=== PATIENT | female | born 1990 | race Caucasian/White ===

== ENCOUNTER 2018-12-13 10:13 | Inpatient (IN) | payer OTHER ==
[2018-12-07 11:54] VITALS: BMI 46.5
--- NOTE | 2018-12-13 12:24 | HP ---
Admitting History and Physical - Admission Chief Complaint: Morbid obesity History of Present Illness: As above History Source: Patient Limitations to Obtaining History: No Limitations - Past Medical History ...LMP: 11/23/18 Psych: Yes: Depression - Advance Directives Advance Directives: Yes: Health Care Proxy - Smoking History Smoking history: Never smoked Have you smoked in the past 12 months: No - Alcohol/Substance Use Hx Alcohol Use: Yes (SOCIALLY) Home Medications - Allergies Allergies/Adverse Reactions: Allergies Allergy/AdvReac Type Severity Reaction Status Date / Time No Known Drug Allergies Allergy Verified 12/07/18 11:45 - Home Medications Home Medications: Ambulatory Orders Sertraline HCl [Zoloft] 125 mg PO DAILY 12/07/18 Famotidine [Pepcid] 20 mg PO BID #60 tablet 12/13/18 Oxycodone HCl/Acetaminophen [Percocet 5-325 mg Tablet] 1 - 2 tab PO Q6H #28 tab MDD 4 12/13/18 Family Disease History - Family Disease History Family History: Denies Review of Systems - Review of Systems Constitutional: denies: Chills, Fever HENT: reports: No Symptoms Neck: reports: No Symptoms Cardiovascular: reports: No Symptoms Respiratory: reports: No Symptoms Gastrointestinal: reports: No Symptoms Neurological: reports: No Symptoms Pain Intensity: 0 Physical Examination Vital Signs: Vital Signs Temperature 98.1 F 12/13/18 10:57 Pulse Rate 72 12/13/18 10:57 Respiratory Rate 16 12/13/18 10:57 Blood Pressure 125/79 12/13/18 10:57 O2 Sat by Pulse Oximetry (%) Constitutional: Yes: Calm, Obese HENT: Yes: WNL Neck: Yes: WNL Cardiovascular: Yes: WNL Respiratory: Yes: WNL Gastrointestinal: Yes: Soft, Abdomen, Obese. No: Tenderness Neurological: Yes: Alert, Oriented Problem List - Problems (1) Morbid obesity due to excess calories Code(s): E66.01 - MORBID (SEVERE) OBESITY DUE TO EXCESS CALORIES (2) BMI 45.0-49.9, adult Code(s): Z68.42 - BODY MASS INDEX (BMI) 45.0-49.9, ADULT Assessment/Plan Laparoscopic possible open vertical sleeve gastrectomy possible liver biopsy possible upper endoscopy
[2018-12-13] MEDS ORDERED: PROPOFOL 20 ML ONE (12:27)
[2018-12-13] MEDS ORDERED: ONDANSETRON 4 MG/2 ML VIAL ONE ×2 (12:27→14:40)
[2018-12-13] MEDS ORDERED: ROCURONIUM BROMIDE 50 MG/5 ML VIAL ONE ×2 (12:27→14:09)
[2018-12-13] MEDS ORDERED: DEXAMETHASONE SOD PHOSPHATE 4 MG/1 ML VIAL ONE (12:27)
[2018-12-13] MEDS ORDERED: fentaNYL CITRATE 250 MCG/5 ML VIAL ONE (12:27)
[2018-12-13] MEDS ORDERED: BUPIVACAINE HCL/PF 2.5 MG/ML - 30 ML VIAL IJ ONE (12:28)
[2018-12-13] MEDS ORDERED: MIDAZOLAM HCL 2 MG/2 ML SINGLE DOSE VIAL ONE (12:36)
[2018-12-13] MEDS ORDERED: ROPIVACAINE HCL 0.5% 30ML VIAL ONE (12:36)
[2018-12-13] MEDS ORDERED: ceFAZolin SODIUM 1 GM VIAL IVPB ONE (13:15)
[2018-12-13] MEDS ORDERED: ONDANSETRON 4 MG/2 ML VIAL IVPUSH PRN (13:24)
[2018-12-13] MEDS ORDERED: LACTATED RINGERS SOLUTION 1,000 ML IV SCH (13:30)
[2018-12-13] MEDS ORDERED: BUPIVACAINE HCL/PF 0.25% (2.5MG/ML) 10 ML VIAL IJ ONE ×2 (14:19)
--- NOTE | 2018-12-13 14:46 | OP ---
Operative Note - Note: Operative Date: 12/13/18 Pre-Operative Diagnosis: Morbid obesity. BMI 46.6 Operation: Laparoscopic vertical sleeve gastrectomy. Laparoscopic wedge liver biopsy Post-Operative Diagnosis: Same as Pre-op (as well as hepatomegaly) Surgeon: Romeo Perry Thermoforming Machine Operator: Gilmar Sin Anesthesia: General Specimens Removed: Greater curvature of the stomach. Liver biopsy Estimated Blood Loss (mls): 30 Drains & Tubes with Location: 36 fr Bougie Operative Report Dictated: Yes
[2018-12-13] MEDS ORDERED: METOCLOPRAMIDE HCL INJECTION 10 MG/2 ML VIAL ONE (14:48)
[2018-12-13] MEDS ORDERED: PROMETHAZINE HCL 25 MG/1 ML VIAL ONE (14:48)
[2018-12-13] MEDS ORDERED: METOCLOPRAMIDE HCL INJECTION 10 MG/2 ML VIAL IVPUSH ONE (14:50)
[2018-12-13] MEDS ORDERED: FAMOTIDINE 20 MG PREMIXED IVPB IVPB ONE (14:55)
[2018-12-13] MEDS ORDERED: PROMETHAZINE HCL 25 MG/1 ML VIAL IVPUSH ONE (14:55)
[2018-12-13] MEDS ORDERED: SODIUM CHLORIDE 1,000 ML IV SCH (15:00)
[2018-12-13] MEDS ORDERED: METOCLOPRAMIDE HCL INJECTION 10 MG/2 ML VIAL IVPUSH SCH (15:00)
[2018-12-13] MEDS ORDERED: ACETAMINOPHEN 1000 MG/100 ML VIAL (NON FORMULARY) IVPB ONE (15:00)
[2018-12-13 15:26] LABS: HEMATOCRIT 33.9 % (32.4-45.2); HEMOGLOBIN 10.9 GM/dl (10.7-15.3); MCH 24.7 pg (25.7-33.7); MCHC 32.1 g/dl (32.0-36.0); MEAN PLT VOLUME 9.9 fl (7.5-11.1); PLATELET COUNT 191 K/MM3 (134-434); RDW 13.6 % (11.6-15.6); WHITE BLOOD COUNT 8.7 K/mm3 (4.0-10.8)
[2018-12-13 15:45] LABS: ALBUMIN 3.2 g/dl (3.4-5.0); ALK PHOS 65 U/L (45-117); ANION GAP 7 MMOL/L (8-16); BILIRUBIN,TOTAL 0.6 mg/dl (0.2-1); BLOOD UREA NITROGEN 10 mg/dl (7-18); CALCIUM 8.2 mg/dl (8.5-10); CHLORIDE 104 mmol/L (98-107); CO2 22 mmol/L (21-32); CREATININE 0.7 mg/dl (0.55-1.3); GLUCOSE,RANDOM 99 mg/dl (74-106); POTASSIUM 3.8 mmol/L (3.5-5.1); SGOT/AST 28 U/L (15-37); SGPT/ALT 28 U/L (13-61); SODIUM 133 mmol/L (136-145); TOT PROT 6.3 g/dl (6.4-8.2)
[2018-12-13] MEDS: ACETAMINOPHEN 1000 MG/100 ML VIAL (NON FORMULARY) IVPB SCH ×2 (16:29→20:27)
[2018-12-13] MEDS: ONDANSETRON 4 MG/2 ML VIAL IVPUSH SCH ×2 (16:48→20:27)
[2018-12-13] MEDS: ENOXAPARIN NA (PORCINE) 40 MG/0.4 ML DISP.SYRIN SQ SCH (21:32)
[2018-12-13] MEDS: FAMOTIDINE 20 MG/50 ML IVPB 20 MG/50 ML MG IVPB SCH (21:32)
--- NOTE | 2018-12-13 23:19 | SPEC ---
DATE OF OPERATION: 12/13/2018 SURGEON: Harjinder Perry M.D. RADIO INTERFERENCE SUPERVISOR: Gilmar Sin M.D. PREOPERATIVE DIAGNOSIS: 1. Morbid obesity. 2. Depression. 3. Body mass index of 46.6. POSTOPERATIVE DIAGNOSIS: 1. Morbid obesity. 2. Depression. 3. Body mass index of 46.6. 4. Hepatomegaly. PROCEDURES: 1. Laparoscopic vertical sleeve gastrectomy. 2. Laparoscopic wedge liver biopsy. SPECIMENS: 1. Greater curvature of the stomach. 2. Wedge liver biopsy. BLOOD LOSS: 30 mL. DRAINS: None. ANESTHESIA: GET BOUGIE SIZE: 36 [place] REASON FOR PROCEDURE: This is a 28-year-old female presents for further weight loss options proceed with laparoscopic, possible open vertical sleeve gastrectomy, possible liver biopsy, possible upper endoscopy. RISKS AND BENEFITS: After describing the different options for weight loss management, the patient decided to proceed with a laparoscopic, possible open vertical sleeve gastrectomy. The patient was seen by the respective subspecialties and cleared for surgery. The risks and benefits of the procedure were explained. These included bleeding, infection, hernia, FL, DVT, PE, injury to surrounding structures including the liver, colon, bowel, spleen, esophagus, vessel injury, nerve injury, weight regain, gastric leak, staple line leak, sleeve leak, obstruction, vitamin deficiency, hair loss and as some of the possible complications. The patient understood and signed informed consent. DESCRIPTION OF PROCEDURE: The patient was placed supine on the operating room table. The patient underwent general endotracheal intubation. The arms were brought out at 90 degrees and secured. A footboard was placed and the legs were secured laterally with padding. The abdomen was prepped and draped in the usual sterile fashion. A timeout was performed. An incision was made in the left upper quadrant and a Veress needle inserted. Pneumoperitoneum was established. Subsequently, the Veress needle was removed and a 5-mm trocar was placed under direct visualization with the laparoscope. The laparoscopic camera was then inserted and inspection of the abdominal cavity was performed. An incision was then made in the supraumbilical area and a 15-mm trocar was placed under direct visualization. A 5-mm trocar was then placed in the right upper quadrant and a 5-mm trocar was placed below the left subcostal margin. A stab wound was made in the subxiphoid area and a Latanya clamp inserted and removed to dilate the tract. A Christiano liver retractor was inserted. The post was secured at the bedside by the nursing staff. The patient was placed in steep reverse Trendelenburg position and the Christiano liver retractor was used to secure the liver towards the anterior abdominal wall. The pylorus was identified and 6 cm proximal to it, the lesser sac was entered using the LigaSure device. All lateral attachments to the greater curvature of the stomach, including the short gastric vessels, were ligated using the LigaSure device toward the gastrosplenic and gastrophrenic ligaments. Once this was done in its entirety, it was confirmed that all tubes within the nasal or oropharyngeal cavity, including a temperature probe, was removed by Anesthesia. The bougie was then inserted by Anesthesia. Transection of the stomach was then begun staying adjacent to the bougie but away from the angularis. Transection of the stomach was performed near the portion of the stomach where the lesser sac was entered. Two laparoscopic Endo-YESSICA black rebeca were used at this location. Laparoscopic Endo YESSICA purple staple loads were then used for the remainder of the transection until the greater curvature of the stomach was fully transected. This was done staying close to the bougie. Care was taken to stay away from the angle of His cephalad. The staple line was then inspected. Hemostasis was identified. A leak test was then performed. It was clamped distally to the staple line. Irrigation solution was placed in the left upper quadrant and air was insufflated by Anesthesia into the sleeve. No leaks were identified. No obstruction was identified. This was done through the entirety of the staple line. In addition, an upper endoscopy was performed. The endoscope was placed into the patients mouth and the entirety of the esophagus, GE junction, gastric pouch and staple line were inspected. No obstruction or leak was noted. The stomach was suctioned and the endoscope removed fully intact. At this point, the irrigation solution was suctioned and again, hemostasis was noted. A wedge liver biopsy was then performed. The left lobe of the liver was identified and a portion of the edge was grasped. Using electrocautery, a wedge of the liver was excised. This was removed and sent off the field as specimen. Hemostasis at the site of the wedge liver biopsy was attained using electrocautery. The 15-mm supraumbilical trocar was then removed and the greater curvature specimen removed from the site using a sponge stick stroud. The specimen was inspected and a Veress needle inserted. The specimen insufflated adequately and no leak was identified. The staple line was noted to be intact. A Sagar-Keren device was then used to close the fascia with a 0 Vicryl suture at the site. Again, hemostasis was noted. The Christiano liver retractor was then removed under direct visualization. Pneumoperitoneum was desufflated and the fascial sutures were secured. Hemostasis was noted at all incision sites and Marcaine was injected at all incision sites. All incision sites were closed using 4-0 Biosyn. Sterile dressings were applied. The patient tolerated the procedure well and was transferred to the recovery room in stable condition. The patient was transferred to telemetry for further monitoring. HARJINDER PERRY M.D. [id number]
[2018-12-14] MEDS: HYDROmorphone HCL CARPU-JECT 1 MG/1 ML DISP.SYRIN IVPB PRN ×3 (00:11→08:16)
[2018-12-14] MEDS: ONDANSETRON 4 MG/2 ML VIAL IVPUSH SCH ×4 (00:13→11:31)
[2018-12-14] MEDS: ACETAMINOPHEN 1000 MG/100 ML VIAL (NON FORMULARY) IVPB SCH ×2 (02:41→09:26)
[2018-12-14 05:48] VITALS: BP 129/65; PULSE 64; TEMP 98.4
[2018-12-14 07:52] LABS: HEMATOCRIT 30.8 % (32.4-45.2); HEMOGLOBIN 10.1 GM/dl (10.7-15.3); MCH 25.1 pg (25.7-33.7); MEAN CELL VOLUME 76.1 fl (80-96); MEAN PLT VOLUME 10.2 fl (7.5-11.1); PLATELET COUNT 222 K/MM3 (134-434); RBC 4.04 M/mm3 (3.60-5.2); RDW 13.3 % (11.6-15.6); WHITE BLOOD COUNT 8.3 K/mm3 (4.0-10.8)
[2018-12-14 08:01] LABS: ALK PHOS 60 U/L (45-117); ANION GAP 6 MMOL/L (8-16); BILIRUBIN,TOTAL 0.7 mg/dl (0.2-1); BLOOD UREA NITROGEN 9 mg/dl (7-18); CALCIUM 8.5 mg/dl (8.5-10); CHLORIDE 103 mmol/L (98-107); CO2 23 mmol/L (21-32); CREATININE 0.6 mg/dl (0.55-1.3); GLUCOSE,RANDOM 87 mg/dl (74-106); POTASSIUM 4.1 mmol/L (3.5-5.1); SGOT/AST 33 U/L (15-37); SGPT/ALT 29 U/L (13-61); SODIUM 132 mmol/L (136-145); TOT PROT 6.3 g/dl (6.4-8.2)
[2018-12-14] MEDS: FAMOTIDINE 20 MG/50 ML IVPB 20 MG/50 ML MG IVPB SCH (09:26)
[2018-12-14] MEDS: ENOXAPARIN NA (PORCINE) 40 MG/0.4 ML DISP.SYRIN SQ SCH (09:27)
[2018-12-14] MEDS ORDERED: SERTRALINE HCL 50 MG TABLET (FP) PO SCH (10:00)
--- NOTE | 2018-12-14 11:21 | PN ---
Progress Note (short form) - Note Progress Note: Anesthesia POD#1, S/P Laparoscopic vertical sleeve gastrectomy, wedge liver biopsy, under GA. VSS. Ambulating. Pain well controlled,Score, 4/10. c/o increased secretion, post nasal dripp. Abdominal pain on deep inspiration. Using IS. No apparent post anesthesia complications. Continued care as per primary team.
[2018-12-14] MEDS ORDERED: oxyCODONE HCL 5 MG TABLET PO PRN (12:53)
--- NOTE | 2018-12-14 12:53 | PN ---
Progress Note (short form) - Note Progress Note: POD 1 Laparoscopic vertical sleeve gastrectomy, wedge liver biopsy No nausea Pain controlled Vital Signs Period Temp Pulse Resp BP Sys/Holt Pulse Ox Last 24 Hr 97.6 F-99.2 F 57-89 16-21 129-158/54-81 97-100 Abd soft CBC,CMP WBC 8.3 K/mm3 (4.0-10.8) 12/14/18 07:06 RBC 4.04 M/mm3 (3.60-5.2) 12/14/18 07:06 Hgb 10.1 GM/dl (10.7-15.3) L 12/14/18 07:06 Hct 30.8 % (32.4-45.2) L 12/14/18 07:06 MCV 76.1 fl (80-96) L 12/14/18 07:06 MCH 25.1 pg (25.7-33.7) L 12/14/18 07:06 MCHC 33.0 g/dl (32.0-36.0) 12/14/18 07:06 RDW 13.3 % (11.6-15.6) 12/14/18 07:06 Plt Count 222 K/MM3 (134-434) 12/14/18 07:06 MPV 10.2 fl (7.5-11.1) 12/14/18 07:06 Sodium 132 mmol/L (136-145) L 12/14/18 07:06 Potassium 4.1 mmol/L (3.5-5.1) 12/14/18 07:06 Chloride 103 mmol/L (98-107) 12/14/18 07:06 Carbon Dioxide 23 mmol/L (21-32) 12/14/18 07:06 Anion Gap 6 MMOL/L (8-16) L 12/14/18 07:06 BUN 9 mg/dl (7-18) 12/14/18 07:06 Creatinine 0.6 mg/dl (0.55-1.3) 12/14/18 07:06 Creat Clearance w eGFR 119.04 (>60) 12/14/18 07:06 Random Glucose 87 mg/dl (74-106) 12/14/18 07:06 Calcium 8.5 mg/dl (8.5-10) 12/14/18 07:06 Total Bilirubin 0.7 mg/dl (0.2-1) 12/14/18 07:06 AST 33 U/L (15-37) 12/14/18 07:06 ALT 29 U/L (13-61) 12/14/18 07:06 Alkaline Phosphatase 60 U/L (45-117) 12/14/18 07:06 Total Protein 6.3 g/dl (6.4-8.2) L 12/14/18 07:06 Albumin 3.0 g/dl (3.4-5.0) L 12/14/18 07:06 UGI: no leak/obstruction Clears Discharge home Problem List - Problems (1) Morbid obesity due to excess calories Code(s): E66.01 - MORBID (SEVERE) OBESITY DUE TO EXCESS CALORIES (2) BMI 45.0-49.9, adult Code(s): Z68.42 - BODY MASS INDEX (BMI) 45.0-49.9, ADULT
[2018-12-14] MEDS ORDERED: SODIUM CHLORIDE 1,000 ML IV SCH (13:00)
--- NOTE | 2018-12-15 16:40 | PATH ---
Surgical Pathology Report Patient Name: KELLI LINARES Med. Rec. #: [id number] /Age/Gender: 1990 (Age: 28) / F Account: [id number] Location: [facility] Taken: 12/13/2018 Received: 12/13/2018 Reported: 12/15/2018 Physicians: Romeo Perry M.D. Specimen(s) Received A: GREATER CURVATURE STOMACH B: LIVER BIOPSY Clinical History Morbid obesity Final Diagnosis A. GREATER CURVATURE STOMACH, LAPAROSCOPIC VERTICAL SLEEVE GASTRECTOMY: SEGMENT OF STOMACH SHOWING MILD CHRONIC GASTRITIS. IMMUNOSTAINING IS NEGATIVE FOR H. PYLORI ORGANISMS. B. LIVER, BIOPSY: LIVER TISSUE WITH MILD STEATOSIS (<5%), FOCAL. NO HISTOLOGIC EVIDENCE OF HEPATITIS. NO INCREASE IN FIBROSIS (TRICHROME STAIN) OR IRON (IRON STAIN) DEPOSITION. Electronically Signed Kaylee Centeno M.D. Gross Description A. Received in formalin, labeled "greater curvature of stomach," is an 88 gram, 11.5 x 3.7 x 3.3 cm. portion of stomach with a stapled margin of resection. The serosa is gaines-ackerman with minimal attached fat. The mucosa is gaines-pink with normal folds. No mucosal masses are identified. Manager Code sections are submitted in one cassette. B. Received in formalin labeled "liver biopsy," is a 2.5 x 1.3 x 1.3 cm gaines portion of soft tissue, consistent with a liver biopsy. Manager Code sections are submitted in one cassette. /12/14/2018 saudi12/14/2018
== END 2018-12-14 13:55 | disposition home or self-care (01) | DRG 403 ==
LOC: FM/S 10:13
PROVIDERS: ADMIT Surgery; ATTEND Surgery
PROC: 0DB64Z3 Excision of Stomach, Percutaneous Endoscopic Approach, Vertical (ICD-10-PCS; principal; 2018-12-13 13:21)
PROC: 0FB24ZZ Excision of Left Lobe Liver, Percutaneous Endoscopic Approach (ICD-10-PCS; 2018-12-13 13:21)
DX: E66.01 Morbid (severe) obesity due to excess calories (principal); F32.9 Major depressive disorder, single episode, unspecified; Z68.42 Body mass index [BMI] 45.0-49.9, adult; R16.0 Hepatomegaly, not elsewhere classified
CPT/HCPCS: 36415; 74241-TC-FY; 80053; 84703; 85027; 88305-TC; 94760; J0131